=== PATIENT | male | born 1950 | race Caucasian/White ===

== ENCOUNTER 2021-12-19 09:51 | Outpatient (CLI) | payer MEDICARE, OTHER, SELFPAY ==
--- NOTE | 2021-12-19 09:00 | CRLHL7_ITS ---
For Patients: As a result of the Century Cures Act, medical imaging exams and procedure reports are released immediately into your electronic medical record. You may view this report before your referring provider. If you have questions, please contact your health care provider. INDICATION: 71 year-old male. Prostate cancer. Bone scan for initial staging. TECHNIQUE: 25.6 mCi Tc-99m labeled MDP administered. Delayed whole body images obtained with the patient at rest. COMPARISON: None. FINDINGS: There is good uptake of activity by the skeleton. There is no convincing scintigraphic evidence for skeletal metastatic disease. Degenerative-type activity is identified within the shoulders, AC joints, left wrist, left ankle, and feet. The kidneys are present without obstruction. Please note the sacrum and coccyx are largely obscured by excreted activity in the urinary bladder. IMPRESSION: 1. No convincing evidence for skeletal metastatic disease. 2. Scattered degenerative-type activity as described. 3. Obscured sacrum and coccyx secondary to excreted activity in the urinary bladder. Dictated by Trever Dowling MD @ 12/19/2021 3:39:55 PM (Electronically Signed)
[2021-12-19 10:41] LABS: Creatinine* 1.1 mg/dL (0.5-1.5); Estimated Glomerular Filt Rate 72 ml/min
--- NOTE | 2021-12-19 11:00 | CRLHL7_ITS ---
For Patients: As a result of the Century Cures Act, medical imaging exams and procedure reports are released immediately into your electronic medical record. You may view this report before your referring provider. If you have questions, please contact your health care provider. Indication: CARCINOMA OF PROSTATE Technique: Postcontrast CT abdomen and pelvis. 86 cc Isovue 370 intravenous contrast. Please note that all CT scans at this facility use dose modulation, iterative reconstruction, and/or weight-based dosing when appropriate to reduce radiation dose to as low as reasonably achievable. Comparison: None Findings: Lung bases are clear with minimal atelectasis in the lingula and right middle lobe. 2.4 cm hernia. No pulmonary nodule. Pleural effusion. Simple cyst in the dome the liver left hepatic lobe measuring millimeters. No suspicious intrahepatic mass. The gallbladder is absent. No biliary obstruction. 2.2 cm duodenal diverticulum incidentally noted. Spleen is normal. Normal adrenal glands. Right kidney is normal. Exophytic cyst arising from the lower pole of the left kidney measuring 4.5 cm. Parapelvic cysts measuring up to 5.2 cm. Posterior left renal cyst measuring 3.8 cm. No hydronephrosis or stone. No suspicious renal mass. Ureters normal. Normal retroperitoneal lymph nodes. Mild vascular calcifications. No aortic aneurysm. Bladder normal. Prostate is heterogeneous and mildly enlarged. Appendix is normal. No bowel obstruction or free air. No free fluid or abscess. Normal inguinal lymph nodes. No enlarged pelvic lymph nodes. Degenerative disc disease and facet degeneration L5-S1. Mild wedging of L3 appears chronic. No suspicious blastic osseous lesion. Impression: No evidence of metastatic disease. Please note that all CT scans at this facility use dose modulation, iterative reconstruction, and/or weight-based dosing when appropriate to reduce radiation dose to as low as reasonably achievable. Dictated by Sj Marshall MD @ 12/19/2021 11:50:43 AM (Electronically Signed)
== END 2021-12-19 09:52 | disposition home or self-care (01) ==
LOC: NM 09:57
PROVIDERS: PCP Family Medicine; Visit Provider Urology
DX: C61 Malignant neoplasm of prostate (principal)
CPT/HCPCS: 36415; 74177; 78306; 82565; A9503; Q9967

== ENCOUNTER 2022-01-29 12:16 | Outpatient (CLI) | payer MEDICARE, SELFPAY | END 2022-01-29 12:17 | disposition home or self-care (01) | LOC: MRI 12:17 | PROVIDERS: PCP Family Medicine; Visit Provider Physician Assistant | DX: C61 Malignant neoplasm of prostate (principal) | CPT/HCPCS: 72195 ==

== ENCOUNTER 2022-09-10 12:50 | Emergency (ER) | payer MEDICARE, OTHER, SELFPAY ==
[2022-09-10 13:06] VITALS: BP 148/71; PULSE 70; RESP 18; TEMP 36.3; O2SAT 100; BMI 28.2
--- NOTE | 2022-09-10 13:39 | CRLHL7_ITS ---
For Patients: As a result of the Century Cures Act, medical imaging exams and procedure reports are released immediately into your electronic medical record. You may view this report before your referring provider. If you have questions, please contact your health care provider. INDICATION: Abdominal pain. History of stones. History of prostate cancer COMPARISON: December 19, 2021. TECHNIQUE: CT examination of the abdomen and pelvis was performed without intravenous contrast. Thin section axial images were obtained from the lung bases through the pubic symphysis. Oral contrast was not administered. Please note that all CT scans at this facility use dose modulation, iterative reconstruction, and/or weight-based dosing when appropriate to reduce radiation dose to as low as reasonably achievable. FINDINGS: LUNG BASES: Linear basilar lung opacities consistent with atelectasis or scarring. Small hiatal hernia.The heart size is normal at the lung bases. LIVER/BILIARY SYSTEM:The liver is normal in size and configuration given the lack of intravenous contrast. There is no visible focal mass and there is no intra- or extra hepatic biliary ductal dilatation.Gallbladder surgically absent ADRENALS: Normal non-contrast appearance KIDNEYS, URETERS and BLADDER:Left renal cysts including cortical and peripelvic spinous lymphatic cysts. Intrarenal calculi bilaterally. Left hydronephrosis and left hydroureter is noted due to a 2.5 millimeter calculus just before the left ureterovesical junction. SPLEEN:Normal non-contrast appearance. PANCREAS: Normal non-contrast appearance. RETROPERITONEUM and MESENTERY: There is no mass, adenopathy or aortic aneurysm. GASTROINTESTINAL SYSTEM: There is no evidence of diverticulitis, colitis, mechanical obstruction, or appendicitis. The small bowel as visualized appears normal.Scattered diverticulosis PELVIS: No adenopathy identified. No free-fluid. OSSEOUS STRUCTURES and ABDOMINAL WALL: There is an age-appropriate appearance of the osseous structures.No evidence of metastatic disease to bone. No significant abdominal wall abnormality OTHER: No free fluid or free air. IMPRESSION: Left-sided obstructive uropathy due to a 2.5 millimeter calcified calculus just before the left ureterovesical junction. Small intrarenal calculi bilaterally. Left renal cysts. No evidence of metastatic prostate carcinoma. Please note that all CT scans at this facility use dose modulation, iterative reconstruction, and/or weight-based dosing when appropriate to reduce radiation dose to as low as reasonably achievable. Dictated by Matthew Fried MD @ 09/10/2022 2:23:30 PM (Electronically Signed)
--- NOTE | 2022-09-10 15:27 | ED.ABDPAIN ---
HPI - Abdominal Pain General Chief Complaint: Abdominal Pain Stated Complaint: L side pain Time Seen by Provider: 09/10/22 12:52 History of Present Illness HPI narrative: This 72-year-old male comes in reporting left-sided abdominal and flank pain that began this morning. He states that he has a history of kidney stones and this feels similar to previous episodes. He does not report any nausea or vomiting. He has not had any symptoms of dysuria. Related Data Previous Rx's Medication Instructions Recorded hydrocodone 5 mg-acetaminophen 325 1 tab PO Q4-6H PRN pain #15 tabs 09/10/22 mg tablet ketorolac 10 mg tablet 10 mg PO Q8H 5 days #15 tabs 09/10/22 Allergies Allergy/AdvReac Type Severity Reaction Status Date / Time Penicillins Allergy Verified 12/19/21 11:30 Review of Systems Status of ROS Reports: 10 or more systems reviewed and unremarkable except as noted in History and below Narrative Constitutional: No fevers, no weight gain or loss. Eyes: No discharge. No vision changes. HENT: No congestion, no sore throat, no ear pain. Cardiovascular: No chest pain, no palpitations. Respiratory: No shortness of breath, no wheezes, no cough. Gastrointestinal: No vomiting, no diarrhea. Left flank and abdominal pain. Genitourinary: No dysuria, no hematuria. Musculoskeletal: Normal range of motion. Skin: No rashes, no pruritis. Neurological: No dizziness, weakness, sensory change, speech change. Endo/Heme/Allergies: No bruising or bleeding. No polydipsia. Pysch: no suicidality, no anxiety, no insomnia. All other systems reviewed and are negative. PFSH PFS Social History Smoking Status: Never smoker Do you use any of these nicotine containing products: None Second hand tobacco smoke exposure: No How often do you have a drink containing alcohol: 2-3 times a week How many standard drinks containing alcohol do you have on a typical day: 3 or 4 How often do you have six or more drinks on one occasion: Never AUDIT-C Alcohol total score: 4 Non-prescribed substance use: denies use service: Yes Exam Narrative: Exam Narrative: Constitutional: Well-developed, well-nourished, no acute distress. HEENT: Normocephalic, atraumatic. Neck: Normal range of motion. Nontender. Supple. Heart: Regular. No murmurs. Normal rate. Intact distal pulses. Lungs: Clear to auscultation. No chest discomfort. No wheezes, rhonchi, or rales. Abdomen: Normal bowel sounds. Nontender. No rebound tenderness. Genitalia: Deferred. Back: No midline tenderness. Normal range of motion. Extremities: Normal range of motion. No injury. Skin: Intact. No rash. Warm. No erythema or pallor. Neurologic: No altered sensation. No weakness. Alert and oriented. Psychiatric: No suicidality. No anxiety or depression. No insomnia. Nursing notes and vitals signs are reviewed. Const: Vital Signs, click to edit/add: Vital Signs - 24 hr 09/10/22 13:06 Temperature 97.4 F L Pulse Rate [Pulse Oximeter] 70 Respiratory Rate 18 Blood Pressure [Le ft Upper Arm] 148/71 H Pulse Oximetry 100 Oxygen Delivery Me thod Room Air Course Vital Signs Vital signs: Initial Vital Signs Temperature 97.4 F L 09/10/22 13:06 Temperature Source Temporal Artery Scan 09/10/22 13:06 Pulse Rate 70 09/10/22 13:06 Pulse Rhythm Regular 09/10/22 13:06 Respiratory Rate 18 09/10/22 13:06 Blood Pressure 148/71 H 09/10/22 13:06 Blood Pressure Mean 96 09/10/22 13:06 Blood Pressure Position Supine 09/10/22 13:06 Pulse Oximetry 100 09/10/22 13:06 Oxygen Delivery Method Room Air 09/10/22 13:06 Vital Signs Temperature 97.4 F L 09/10/22 13:06 Pulse Rate 70 09/10/22 13:06 Respiratory Rate 18 09/10/22 13:06 Blood Pressure 148/71 H 09/10/22 13:06 Pulse Oximetry 100 09/10/22 13:06 Oxygen Delivery Method Room Air 09/10/22 13:06 Temperature 97.4 F L 09/10/22 13:06 Pulse Rate 70 09/10/22 13:06 Respiratory Rate 18 09/10/22 13:06 Blood Pressure 148/71 H 09/10/22 13:06 Pulse Oximetry 100 09/10/22 13:06 Oxygen Delivery Method Room Air 09/10/22 13:06 MDM - Abdominal Pain MDM Narrative Medical decision making narrative: This patient comes in with left-sided abdominal and flank pain that is suspicious for kidney stone. CT imaging of the abdomen and pelvis does show a 2.5 mm stone at the left ureterovesical junction. The patient is not that uncomfortable and denied any pain medicine initially. He did receive a tablet of Toradol at the end of his visit here. A prescription for Toradol and [place] is also provided for ongoing pain management. Imaging Data CT scan - abdomen: Radiologist's impression: Left-sided obstructive uropathy due to a 2.5 millimeter calcified calculus just before the left ureterovesical junction. Small intrarenal calculi bilaterally. Left renal cysts. No evidence of metastatic prostate carcinoma. Discharge Plan Discharge Clinical Impression: Calculus, ureteral Patient Disposition: Home, Self-Care Condition: Unchanged Additional Instructions: Take medication as needed and directed. Follow up with MD or return if worsening. Prescriptions: New hydrocodone-acetaminophen 5-325 mg tablet 1 tab PO Q4-6H PRN (Reason: pain) Qty: 15 0RF ketorolac 10 mg tablet 10 mg PO Q8H 5 Days Qty: 15 0RF Follow Up/Referrals: García Lazaro MD [Primary Care Provider] - Stand Alone Forms: [employer] Info Instructions
[2022-09-10 15:28] LABS: Appearance Urine Clear (Clear); Bilirubin Urine Negative (Negative); Blood Urine Negative (Negative); Color Urine Yellow (Yellow); Glucose Urine Negative (Negative); Ketones Urine Negative (Negative); Leukocyte Esterase Urine Negative (Negative); Nitrite Urine Negative (Negative); Protein Urine Negative (Negative); Specific Gravity Urine 1.025 (1.000-1.030); Urobilinogen Urine 0.2 (0.2-1.0)
[2022-09-10] MEDS: KETOROLAC 10 MG TABLET PO (15:44)
[2022-09-10 15:50] LABS: RBC Urine 0-2 (0-2); WBC Urine 0-2 (0-5)
== END 2022-09-10 15:56 | disposition home or self-care (01) ==
PROVIDERS: Emergency Provider Emergency Medicine Emergency Medical Services; PCP Family Medicine
DX: N20.1 Calculus of ureter (principal)
CPT/HCPCS: 74176; 81001; 99284; A9270